=== PATIENT | female | born 1995 | race Hispanic/Latino ===

== ENCOUNTER 2017-11-29 14:47 | Emergency (ER) | payer MEDICAID ==
[2017-11-29 15:34] LABS: APPEARANCE,URINE Clear (CLEAR); BILIRUBIN,URINE Negative (NEGATIVE); COLOR,URINE Yellow (YELLOW); GLUCOSE, URINE (UA) Negative (NEGATIVE); KETONES,URINE Negative (NEGATIVE); LEUKOCYTE ESTERASE ,URINE Negative (NEGATIVE); NITRATE,URINE Negative (NEGATIVE); OCCULT BLOOD,URINE Negative (NEGATIVE); PH,URINE 8.5 (5.0-8.0); PROTEIN,URINE Negative (NEGATIVE); UROBILINOGEN,URINE 0.2 mg/dL (0.2-1.0)
[2017-11-29 15:56] LABS: BASOPHILS % (AUTO) 0.2 % (0.0-5.0); EOSINOPHILS % (AUTO) 0.6 % (0.0-8.0); HEMATOCRIT 29.4 % (36-48); LYMPHOCYTES % (AUTO) 20.5 % (21.0-51.0); MEAN CORPUSCULAR HEMOGLOBIN 31.6 pg (27.0-33.0); MEAN CORPUSCULAR HGB CONC 35.9 g/dL (32.0-36.0); MEAN CORPUSCULAR VOLUME 88.2 fL (80-100); MONOCYTES % (AUTO) 2.8 % (3.0-13.0); NEUTROPHILS % (AUTO) 75.9 % (40.0-77.0); PLATELET COUNT (AUTO) 310 K/uL (130-400); RED BLOOD CELL COUNT(AUTO) 3.34 MIL/uL (4.00-5.50); RED CELL DISTRIBUTION WIDTH 14.6 % (11.0-15.5); WHITE BLOOD COUNT (AUTO) 10.2 K/uL (4.8-10.8)
[2017-11-29 16:06] LABS: CREATININE 0.5 mg/dL (0.5-1.5)
== END 2017-11-29 16:29 | disposition home or self-care (01) ==
LOC: EDH 14:47
DX: O20.0 Threatened abortion (principal); Z98.890 Other specified postprocedural states; Z3A.19 19 weeks gestation of pregnancy
CPT/HCPCS: 36415; 76805; 80048; 81003; 85025